=== PATIENT | female | born 2000 | race Caucasian/White ===

== ENCOUNTER 2019-07-13 00:56 | Emergency (ER) | payer BC, OTHER ==
--- NOTE | 2019-07-13 01:17 | EDM.PDOC ---
ED HPI GENERAL MEDICAL PROBLEM - General Chief Complaint: Head Injury Stated Complaint: poss head injury Time Seen by Provider: 07/13/19 01:12 Source of Information: Reports: Patient, Family (significant other) History Limitations: Reports: No Limitations - History of Present Illness INITIAL COMMENTS - FREE TEXT/NARRATIVE: 19-year-old female attends the ED with reported diffuse headache associated nausea without vomiting photophobi and mild cervical neck pain. She states she was struck by a large steel frame door left frontotemporal scalp about 1900 hrs. tonight. She had a headache within half hour and associated nausea. Now she feels the headache is much more intense. She is wearing sunglasses due to photosensitivity. She does has a history of migraines. No vomiting. She feels her balance is not quite right. Mild diffuse left-sided cervical neck pain. Onset: Sudden Onset Date: 07/12/19 Onset Time: 19:00 Duration: Hour(s): Location: Reports: Head (Struck in the left frontal temporal scalp by a large metal frame door), Neck Quality: Reports: Ache, Pressure, Throbbing, Other Severity: Severe (Associated with nausea) Improves with: Reports: None ( and did attend) Worsens with: Reports: None Context: Reports: Trauma (Blunt trauma from a edge of a steel door.). Denies: Activity, Exercise, Lifting, Sick Contact Associated Symptoms: Reports: Headaches, Loss of Appetite, Malaise, Nausea/ Vomiting, Other. 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 No relief of the pain) Head Pain Score (Numeric/FACES): 7 - Related Data Allergies Allergy/AdvReac Type Severity Reaction Status Date / Time No Known Allergies Allergy Verified 07/13/19 01:08 Home Meds: Home Meds . [No Known Home Meds] 07/13/19 [History] Past Medical History Neurological History: Reports: Migraines Social & Family History - Living Situation & Occupation Living situation: Reports: Single Occupation: Employed ED ROS GENERAL - Review of Systems Review Of Systems: See Below Constitutional: Reports: Weakness, Fatigue, Decreased Appetite. Denies: Fever, Chills, Malaise HEENT: Reports: Glasses Respiratory: Reports: No Symptoms Cardiovascular: Reports: No Symptoms Endocrine: Reports: No Symptoms GI/Abdominal: Reports: Nausea (Since hitting her head.) : Reports: No Symptoms Musculoskeletal: Reports: Neck Pain Skin: Reports: No Symptoms Neurological: Reports: No Symptoms Psychiatric: Reports: No Symptoms Hematologic/Lymphatic: Reports: No Symptoms Immunologic: Reports: No Symptoms ED EXAM, HEAD INJURY - Physical Exam Exam: See Below Exam Limited By: No Limitations General Appearance: Alert, WD/WN, Mild Distress, Other (Wearing dark sunglasses due to photophobia) Head: Scalp Swelling (Mild scalp swelling over the left frontal cortex.), Scalp Hematoma (Mild left-sided scalp hematoma frontal lateral), Scalp Tenderness ( scalp.). No: Scalp Abrasions, Scalp Ecchymosis, Active Bleeding ( in the temporal region. ), Facial Swelling Nexus Criteria: No: Posterior, Midline Cervical Tenderness, Evidence of Intoxication, Altered Level of Consciousness, Focal Neurological Deficit, Painful Distraction Injuries Eyes: Bilateral Eye: Normal Inspection, PERRL Throat/Mouth: Normal Inspection, Normal Lips, Normal Oropharynx Neck: Full Range of Motion, Paraspinous Muscle Tender, Tenderness, Tender Lateral. No: Muscle Spasm (Mild tenderness left lateral neck.), Spinous Processes Tender, Stiff Neck Respiratory: No Respiratory Distress (Mild left-sided neck), Lungs Clear, Normal Breath Sounds, No Accessory Muscle Use, Chest Non-Tender Cardiovascular: Normal Peripheral Pulses, Regular Rate, Rhythm, No Edema, No Gallop, No Murmur, No Rub GI/Abdominal Exam: Normal Bowel Sounds, Soft, Non-Tender, No Organomegaly, No Distention Back Exam: Normal Inspection, Full Range of Motion Extremities: Normal Inspection, Normal Range of Motion, Non-Tender Course - Vital Signs Last Recorded V/S: Last Vital Signs Temp 36.2 C 07/13/19 01:04 Pulse 85 07/13/19 01:04 Resp 18 07/13/19 01:04 BP 141/89 H 07/13/19 01:04 Pulse Ox 100 07/13/19 01:04 - Orders/Labs/Meds Orders: Active Orders 24 hr Category Date Time Status Head wo Cont [CT] Stat Exams 07/13/19 01:13 Taken - Radiology Interpretation Free Text/Narrative:: 19-year-old female presents to the ED 6 hours after being struck in the left side of her head by a steel frame door. She states it struck her in the left frontal temporal skull in days or for a bit. She thought initially she might be bleeding but no open wounds are identified. She developed a headache within about 20 minutes to 30 minutes after injury with associated nausea that has just intensified since the time of injury. She feels a little offkilter. She comes into the ED wearing dark sunglasses due to the severity of the headache and photosensitivity. Examination shows minimal scalp hematoma and tenderness over the left frontal /temporal scalp. Minimal left-sided neck tenderness without evidence of any fracture. Plan CT head to be done. - Re-Assessments/Exams Free Text/Narrative Re-Assessment/Exam: 07/13/19 01:58 CT head reveals no intracranial bleeding or mass effect. No skull fractures identified. No scalp hematomas identified either. Patient will thus be given Dilaudid 1 mg IM with Phenergan 25 mg IM for headache and nausea relief. If contused the superficial temporal artery which may precipitated the bad headache. She doesn't have to work until 5:00 today. She should be okay by that time from the medication effect. Departure - Departure Time of Disposition: 02:03 Disposition: Home, Self-Care 01 Condition: Fair Clinical Impression: Closed head injury Qualifiers: Encounter type: initial encounter Qualified Code(s): S09.90XA - Unspecified injury of head, initial encounter Migraine Qualifiers: Migraine type: without aura - Discharge Information *PRESCRIPTION DRUG MONITORING PROGRAM REVIEWED*: Not Applicable Instructions: Migraine Headache, [id number], Head Injury, Adult, [id number] Forms: ED Department Discharge Additional Instructions: Evaluation the emergency room tonight in regards to closed head injury secondary to blunt trauma to the left frontal temporal scalp by heavy steel door. This appears to have precipitated a migraine type headache with photophobia and nausea. ET head reveals no skull fractures or intracranial bleeding or mass effect. You're treated with an intramuscular injection of Dilaudid 1 mg with Phenergan 25 mg IM for pain and nausea relief. This will cause some degree of sedation expect to likely be sleeping for the next 8 hours. After this suggest Motrin 600 mg every 6 hours for pain relief due to contusion to the scalp. No evidence of concussion identified. - My Orders Last 24 Hours: My Active Orders 07/13/19 01:13 Head wo Cont [CT] Stat - Assessment/Plan Last 24 Hours: My Active Orders 07/13/19 01:13 Head wo Cont [CT] Stat
[2019-07-13] MEDS ORDERED: HYDROmorphone 1 MG/ML Syringe IM ONE (02:01)
[2019-07-13] MEDS ORDERED: Promethazine 25 MG/ML SDV IM ONE (02:01)
--- NOTE | 2019-07-13 07:00 | CT ---
Head CT Technique: Multiple axial sections through the brain were obtained. Intravenous contrast was not utilized. Comparison: No prior intracranial imaging is available. Findings: Ventricles along with basal cisterns and sulci over the convexities appear within normal limits for the patient's age. No abnormal parenchymal densities are seen. No evidence of intracranial hemorrhage. No midline shift or mass effect is seen. Bone window settings were reviewed which show no acute calvarial abnormality. Visualized paranasal sinuses show nothing acute. Visualized mastoid sinuses are clear. Impression: 1. Nothing acute is identified on noncontrast head CT exam. Diagnostic code #1 I agree with preliminary report from [facility], finalized on 07/13/19, 3:07 AM Central Time
== END 2019-07-13 02:28 | disposition home or self-care (01) ==
LOC: JD.ED 00:56
DX: S09.90XA Unspecified injury of head, initial encounter (principal); G43.009 Migraine without aura, not intractable, without status migrainosus; W22.8XXA Striking against or struck by other objects, initial encounter
CPT/HCPCS: 70450; 96372; 99283; J1170; J2550

== ENCOUNTER 2020-02-25 21:50 | Emergency (ER) | payer BC ==
--- NOTE | 2020-02-25 22:27 | EDM.PDOC ---
<Daysi Ramos - Last Filed: 02/25/20 22:58> ED HPI GENERAL MEDICAL PROBLEM - General Chief Complaint: Abdominal Pain Stated Complaint: ABDORMINAL PAINS FOR THE LAST ONE MONTH Time Seen by Provider: 02/25/20 21:59 Source of Information: Reports: Patient History Limitations: Reports: No Limitations - History of Present Illness INITIAL COMMENTS - FREE TEXT/NARRATIVE: Patient is a 19-year-old female who presents to the ER with complaints of dull lower abdominal pain for the last month. She states that she initially thought she may be , however she has had 2 negative home test. Patient also states that she started her period 2 days ago and that it has been abnormally heavy for her. She is fairly regular with her periods and states she gets them about at the same time every month, however, she states last months period was spotting which is what led her to believe she could be . She had been on the control pill, however, approximately 3 months ago she was changed to the control patch. She states that this month her period began while she still had on the active patch. She has had some mild nausea with smelling food for the last month. She has had no vomiting. States that she has alternating between diarrhea and constipation. She is had no fever no chills. She denies any dysuria, however states she has had urinary tract infections in the past. Bilateral Lower Abdomen Pain Score (Numeric/FACES): 8 - Related Data Allergies Allergy/AdvReac Type Severity Reaction Status Date / Time No Known Allergies Allergy Verified 07/13/19 01:08 Home Meds: Home Meds . [No Known Home Meds] 07/13/19 [History] Past Medical History - Past Health History Medical/Surgical History: Denies Medical/Surgical History Neurological History: Reports: Migraines Social & Family History - Family History Family Medical History: Noncontributory - Living Situation & Occupation Living situation: Reports: Single Occupation: Employed ED ROS GENERAL - Review of Systems Review Of Systems: Comprehensive ROS is negative, except as noted in HPI. ED EXAM, GI/ABD - Physical Exam Exam: See Below Exam Limited By: No Limitations General Appearance: Alert, WD/WN, No Apparent Distress Respiratory/Chest: No Respiratory Distress, Lungs Clear, Normal Breath Sounds, No Accessory Muscle Use, Chest Non-Tender Cardiovascular: Normal Peripheral Pulses, Regular Rate, Rhythm, No Edema, No Gallop, No JVD, No Murmur, No Rub GI/Abdominal Exam: Normal Bowel Sounds, Soft, No Organomegaly, No Distention, No Abnormal Bruit, No Mass, Pelvis Stable, Tender (suprapubic) Neurological: Alert, Oriented, CN II-XII Intact, Normal Cognition, Normal Gait, Normal Reflexes, No Motor/Sensory Deficits Psychiatric: Normal Affect, Normal Mood Skin Exam: Warm, Dry, Intact, Normal Color, No Rash Course - Vital Signs Last Recorded V/S: Last Vital Signs Temp 36.3 C 02/25/20 21:58 Pulse 106 H 02/25/20 21:58 Resp 20 02/25/20 21:58 BP 156/94 H 02/25/20 21:58 Pulse Ox 100 02/25/20 21:58 - Orders/Labs/Meds Orders: Active Orders 24 hr Category Date Time Status KUB [Abdomen 1V Flat] [CR] Stat Exams 02/25/20 22:19 Taken Labs: Laboratory Tests 02/25/20 02/25/20 02/25/20 Range/Units 22:26 22:26 22:26 WBC 8.86 (3.98-10.04) K/mm3 RBC 4.56 (3.98-5.22) M/mm3 Hgb 10.0 L (11.2-15.7) gm/dl Hct 34.1 (34.1-44.9) % MCV 74.8 L D (79.4-94.8) fl MCH 21.9 L (25.6-32.2) pg MCHC 29.3 L (32.2-35.5) g/dl RDW Std Deviation 42.7 (36.4-46.3) fL Plt Count 260 (182-369) K/mm3 MPV 10.1 (9.4-12.3) fl Neut % (Auto) 62.0 (34.0-71.1) % Lymph % (Auto) 31.9 (19.3-51.7) % Day % (Auto) 5.3 (4.7-12.5) % Eos % (Auto) 0.5 L (0.7-5.8) Baso % (Auto) 0.1 (0.1-1.2) % Neut # (Auto) 5.49 (1.56-6.13) K/mm3 Lymph # (Auto) 2.83 (1.18-3.74) K/mm3 Day # (Auto) 0.47 H (0.24-0.36) K/mm3 Eos # (Auto) 0.04 (0.04-0.36) K/mm3 Baso # (Auto) 0.01 (0.01-0.08) K/mm3 Manual Slide Review Abnormal smear Sodium 142 (136-145) mEq/L Potassium 4.0 (3.5-5.1) mEq/L Chloride 108 H (98-107) mEq/L Carbon Dioxide 26 (21-32) mEq/L Anion Gap 12.0 (5-15) BUN 7 (7-18) mg/dL Creatinine 0.8 (0.55-1.02) mg/dL Est Cr Clr Drug Dosing 120.29 mL/min Estimated GFR (MDRD) > 60 (>60) mL/min BUN/Creatinine Ratio 8.8 L (14-18) Glucose 147 H (74-106) mg/dL Calcium 8.2 L (8.5-10.1) mg/dL Total Bilirubin 0.2 (0.2-1.0) mg/dL AST 8 L (15-37) U/L ALT 17 (14-59) U/L Alkaline Phosphatase 77 (46-116) U/L C-Reactive Protein 1.7 H* (<1.0) mg/dL Total Protein 6.7 (6.4-8.2) g/dl Albumin 3.0 L (3.4-5.0) g/dl Globulin 3.7 gm/dL Albumin/Globulin Ratio 0.8 L (1-2) HCG, Qual Negative (NEGATIVE) Urine Color (Yellow) Urine Appearance (Clear) Urine pH (5.0-8.0) Ur Specific [place] (1.005-1.030) Urine Protein (Negative) Urine Glucose (UA) (Negative) Urine Ketones (Negative) Urine Occult Blood (Negative) Urine Nitrite (Negative) Urine Bilirubin (Negative) Urine Urobilinogen (0.2-1.0) Ur Leukocyte Esterase (Negative) Urine RBC (0-5) /hpf Urine WBC (0-5) /hpf Ur Squamous Epith Cells (0-5) /hpf Urine Bacteria (FEW) /hpf Urine Mucus (FEW) /hpf 02/25/20 Range/Units 22:45 WBC (3.98-10.04) K/mm3 RBC (3.98-5.22) M/mm3 Hgb (11.2-15.7) gm/dl Hct (34.1-44.9) % MCV (79.4-94.8) fl MCH (25.6-32.2) pg MCHC (32.2-35.5) g/dl RDW Std Deviation (36.4-46.3) fL Plt Count (182-369) K/mm3 MPV (9.4-12.3) fl Neut % (Auto) (34.0-71.1) % Lymph % (Auto) (19.3-51.7) % Day % (Auto) (4.7-12.5) % Eos % (Auto) (0.7-5.8) Baso % (Auto) (0.1-1.2) % Neut # (Auto) (1.56-6.13) K/mm3 Lymph # (Auto) (1.18-3.74) K/mm3 Day # (Auto) (0.24-0.36) K/mm3 Eos # (Auto) (0.04-0.36) K/mm3 Baso # (Auto) (0.01-0.08) K/mm3 Manual Slide Review Sodium (136-145) mEq/L Potassium (3.5-5.1) mEq/L Chloride (98-107) mEq/L Carbon Dioxide (21-32) mEq/L Anion Gap (5-15) BUN (7-18) mg/dL Creatinine (0.55-1.02) mg/dL Est Cr Clr Drug Dosing mL/min Estimated GFR (MDRD) (>60) mL/min BUN/Creatinine Ratio (14-18) Glucose (74-106) mg/dL Calcium (8.5-10.1) mg/dL Total Bilirubin (0.2-1.0) mg/dL AST (15-37) U/L ALT (14-59) U/L Alkaline Phosphatase (46-116) U/L C-Reactive Protein (<1.0) mg/dL Total Protein (6.4-8.2) g/dl Albumin (3.4-5.0) g/dl Globulin gm/dL Albumin/Globulin Ratio (1-2) HCG, Qual (NEGATIVE) Urine Color Yellow (Yellow) Urine Appearance Slt cloudy H (Clear) Urine pH 6.5 (5.0-8.0) Ur Specific [place] > or = 1.030 (1.005-1.030) Urine Protein 2+ H (Negative) Urine Glucose (UA) Negative (Negative) Urine Ketones Negative (Negative) Urine Occult Blood 3+ H (Negative) Urine Nitrite Negative (Negative) Urine Bilirubin Negative (Negative) Urine Urobilinogen 1.0 (0.2-1.0) Ur Leukocyte Esterase Negative (Negative) Urine RBC 50-75 H (0-5) /hpf Urine WBC 0-5 (0-5) /hpf Ur Squamous Epith Cells 0-5 (0-5) /hpf Urine Bacteria Few (FEW) /hpf Urine Mucus Few (FEW) /hpf Meds: Medications Discontinued Medications Generic Name Dose Route Start Last Admin Trade Name Freq PRN Reason Stop Dose Admin Ibuprofen 600 mg 02/25/20 22:29 02/25/20 22:38 Motrin PO 02/25/20 22:30 600 mg ONETIME ONE Administration - Re-Assessments/Exams Free Text/Narrative Re-Assessment/Exam: 02/25/20 22:59 lab results are pending. case discussed with dr. rutledge and he will assume care of the patient at this time. Departure - Departure Disposition: Home, Self-Care 01 Clinical Impression: Menstrual cramps - Discharge Information Referrals: PCP,None [Primary Care Provider] - Forms: ED Department Discharge Additional Instructions: You were seen in the emergency room for 1 month of lower abdominal pain associated with menstrual spotting. Work-up in the ER included blood work, a urinalysis, and x-rays of your abdomen and pelvis. Your entire work-up was unremarkable. You do not have an infection. You are not significantly anemic. You are not . Based on your history, physical exam, and ER tests, your lower abdominal discomfort is most likely due to menstrual cramps associated with menstrual spotting. If your symptoms persist, we recommend that you follow-up with the Press Operator Helper Dr. Campbell Garcia. If any other problems, please do not hesitate to return to the ER. Sepsis Event Note - Evaluation Sepsis Screening Result: No Definite Risk - Focused Exam Vital Signs: Vital Signs Temp Pulse Resp BP Pulse Ox 02/25/20 21:58 36.3 C 106 H 20 156/94 H 100 Date Exam was Performed: 02/25/20 Time Exam was Performed: 22:58 <Artie Rutledge - Last Filed: 02/25/20 23:33> Course - Re-Assessments/Exams Free Text/Narrative Re-Assessment/Exam: 02/25/20 23:28 KUB appears to demonstrate a nonspecific bowel gas pattern. Formal read per the Radiologist pending. The patient CBC is remarkable for a Hgb mildly depressed at 10.0, with a Hct normal at 34.1. The remainder of her CBC is unremarkable. Her CMP is remarkable for a chloride slightly elevated at 108, and a blood glucose mildly elevated at 149, with the remainder of her CMP being unremarkable. Her CRP is mildly elevated at 1.7. Her serum qualitative hCG is negative. Her urinalysis is remarkable for 3+ occult blood and 50-75 RBCs, leukocyte esterase negative with 0-5 WBCs, nitrite negative with few bacteria, and 0-5 squamous epithelial cells. The patient's urinalysis is consistent with her menstruation. The remainder of her work-up was unremarkable. I will discharge her home. Departure - Departure Time of Disposition: 23:31 Condition: Good - Discharge Information *PRESCRIPTION DRUG MONITORING PROGRAM REVIEWED*: Not Applicable *COPY OF PRESCRIPTION DRUG MONITORING REPORT IN PATIENT LUZ ELENA: Not Applicable Sepsis Event Note - Focused Exam Date Exam was Performed: 02/25/20 Time Exam was Performed: 23:28
[2020-02-25] MEDS ORDERED: Ibuprofen 600 MG Tab PO ONE (22:29)
--- NOTE | 2020-02-26 10:28 | CR ---
Abdomen: Supine view of the abdomen was obtained. Bowel gas pattern appears within normal limits. Calcifications are seen within the pelvis which are compatible with phleboliths. Bony structures are unremarkable. Impression: 1. Nothing acute is seen on supine abdominal x-ray. Diagnostic code #1 This report was dictated in MDT
== END 2020-02-25 23:47 | disposition home or self-care (01) ==
LOC: JD.ED 21:50
DX: N94.6 Dysmenorrhea, unspecified (principal)
CPT/HCPCS: 36415; 74018; 80053; 81001; 84703; 85025; 86140; 99284; A9270; 99283

== ENCOUNTER 2021-03-04 06:35 | Inpatient (IN) | payer BC, MEDICAID ==
[2021-03-04] MEDS ORDERED: Nalbuphine 10 MG/1 ML Vial IVPUSH PRN (18:48)
[2021-03-04] MEDS ORDERED: Sodium Chloride 0.9% 10 ML Syringe FLUSH PRN (18:48)
[2021-03-04] MEDS ORDERED: Ondansetron 4 MG/2 ML SDV IVPUSH PRN (18:48)
[2021-03-04] MEDS ORDERED: Misoprostol 25 MCG (1/4 of 100 MCG) Tab VAG PRN (18:48)
--- NOTE | 2021-03-04 18:53 | PCM.LDHP ---
L&D History of Present Illness - General Date of Service: 03/04/21 Admit Problem/Dx: Patient Status Order with Admit Dx/Problem 03/04/21 18:49 Patient Status [ADT] Routine Admission Diagnosis/Problem Admission Diagnosis/Problem 37 weeks gestation of Source of Information: Patient History Limitations: Reports: No Limitations - History of Present Illness Introduction:: Patient is a 20 y/o at 37 1/7 wks who presents for planned IOL for prior findings of elevated BP and elevated urine protein:creatinine ratio. Doing well today. 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: : 1 Para: 0 LMP (Approximate): Social & Family History - Family History Family Medical History: No Pertinent Family History - Tobacco Use Tobacco Use Status *Q: Never Tobacco User - Caffeine Use Caffeine Use: Reports: None - Alcohol Use Alcohol Use History: No - Recreational Drug Use Recreational Drug Use: No - Living Situation & Occupation Living situation: Reports: Single Occupation: Employed H&P Review of Systems - Review of Systems: Review Of Systems: See Below General: Reports: No Symptoms HEENT: Denies: Visual Changes Pulmonary: Reports: No Symptoms Cardiovascular: Reports: No Symptoms Gastrointestinal: Reports: No Symptoms Genitourinary: Reports: No Symptoms Musculoskeletal: Reports: No Symptoms Psychiatric: Reports: No Symptoms Neurological: Denies: Headache L&D Exam - Exam Exam: See Below - OB Specific Contraction Intensity: Irritability Movement: Active Heart Tones: Present Heart Tones per Min: 130 Heart Rate (FHR) Variability: Marked (>25 bpm) Presentation: Vertex - Bull Score Bull Score Cervix Position: Midposition Bull Score Consistency: Soft Bull Score Effacement: 51-70% Bull Score Dilation: 3-4 cm Bull Score Infant's Station: -2 Bull Score Total: 8 - Exam General: Alert, Oriented, Cooperative Lungs: Clear to Auscultation, Normal Respiratory Effort Cardiovascular: Regular Rate, Regular Rhythm GI/Abdominal Exam: Soft, Non-Tender Genitourinary: Normal external exam Extremities: Normal Inspection Skin: Warm, Dry, Intact - Patient Data Result Diagrams: 03/04/21 19:58 03/04/21 19:58 - Problem List (1) 37 weeks gestation of SNOMED Code(s): 43852827 ICD Code: Z3A.37 - 37 WEEKS GESTATION OF Status: Acute Current Visit: Yes (2) Gestational diabetes SNOMED Code(s): 01319713 ICD Code: O24.419 - GESTATIONAL DIABETES MELLITUS IN , UNSP CONTROL Status: Acute Current Visit: Yes Qualifiers: Gestational diabetes mellitus control: insulin-controlled Trimester: third trimester Qualified Code(s): O24.414 - Gestational diabetes mellitus in , insulin controlled (3) Preeclampsia SNOMED Code(s): 091253937 ICD Code: O14.90 - UNSPECIFIED PRE-ECLAMPSIA, UNSPECIFIED TRIMESTER Status: Acute Current Visit: Yes Qualifiers: Trimester: third trimester Qualified Code(s): O14.93 - Unspecified pre- eclampsia, third trimester Problem List Initiated/Reviewed/Updated: Yes Orders Last 24hrs: Active Orders 24 hr Category Date Time Status Patient Status [ADT] Routine ADT 03/04/21 18:49 Ordered Communication Order [RC] ASDIRECTED Care 03/04/21 18:49 Ordered Communication Order [RC] ASDIRECTED Care 03/04/21 18:49 Ordered Communication Order [RC] ASDIRECTED Care 03/04/21 18:49 Ordered Communication Order [RC] ASDIRECTED Care 03/04/21 18:49 Ordered Heart Tones [RC] ASDIRECTED Care 03/04/21 18:50 Ordered Monitoring [RC] INTERMITTENT Care 03/04/21 18:49 Ordered Non Stress Test [RC] PER UNIT ROUTINE Care 03/04/21 18:49 Ordered Notify Provider [RC] ASDIRECTED Care 03/04/21 18:49 Ordered Notify Provider [RC] PRN Care 03/04/21 18:49 Ordered Peripheral IV Care [RC] . DIRECTED Care 03/04/21 18:50 Ordered Vaginal Exam [RC] ASDIRECTED Care 03/04/21 18:49 Ordered Vital Signs [RC] ASDIRECTED Care 03/04/21 18:49 Ordered Regular Diet [DIET] Diet 03/04/21 Dinner Ordered ALANINE AMINOTRANSFERASE,ALT [CHEM] Routine Lab 03/04/21 18:48 Ordered ASPARTATE AMNIOTRANSFERASE,AST [CHEM] Routine Lab 03/04/21 18:48 Ordered CBC W/O DIFF,HEMOGRAM [HEME] Routine Lab 03/04/21 18:48 Ordered CORONAVIRUS COVID-19 [place] [MOLEC] Stat Lab 03/04/21 18:51 Ordered CREATININE W/GFR [CHEM] Routine Lab 03/04/21 18:48 Ordered PROTEIN/CREATININE RATIO,URINE [URCHEM] Routine Lab 03/04/21 18:48 Ordered RAPID PLASMA REAGIN,RPR [CHEM] Routine Lab 03/04/21 18:49 Ordered TYPE AND SCREEN [BBK] Routine Lab 03/04/21 18:48 Ordered Lactated Ringers [Ringers, Lactated] 1,000 ml Med 03/04/21 19:00 Ordered IV ASDIRECTED Nalbuphine [Nubain] Med 03/04/21 18:48 Ordered 10 mg IVPUSH Q2H PRN Ondansetron [Zofran] Med 03/04/21 18:48 Ordered 4 mg IVPUSH Q4H PRN Oxytocin/Lactated Ringers [Pitocin in LR 10 Units/1,000 Med 03/04/21 19:00 Ordered ML] 10 unit in 1,000 ml IV .CONTINUOUS Oxytocin/Lactated Ringers [Pitocin in LR 10 Units/1,000 Med 03/04/21 19:00 Ordered ML] 10 unit in 1,000 ml IV TITRATE Sodium Chloride 0.9% [Saline Flush] Med 03/04/21 18:48 Ordered 10 ml FLUSH ASDIRECTED PRN miSOPROStoL [Cytotec] Med 03/04/21 18:48 Ordered 25 mcg VAG Q4H PRN Electronic Heart Tones Ext w TOCO [WOMSER] Oth 03/04/21 18:49 Ordered Routine Electronic Heart Tones Internal [WOMSER] Per Unit Oth 03/04/21 18:49 Ordered Routine Medication Administration Instruction [OM.PC] Ot 03/04/21 19:00 Ordered ASDIRECTED Peripheral IV Insertion Adult [OM.PC] Routine Oth 03/04/21 18:49 Ordered Resuscitation Status Routine Resus Stat 03/04/21 18:48 Ordered Assessment/Plan Comment:: * Previous findings of multiple mild range BP's, repeat labs on admission * Cytotec for IOL and then pitocin/AROM when able * GBS negative * Blood sugars q4 * Pain management per patient preference * Anticipate
[2021-03-04] MEDS ORDERED: Oxytocin/Lactated Ringers 10 UNIT/1,000 ML BAG IV SCH ×2 (19:00)
[2021-03-04] MEDS ORDERED: Misoprostol 25 MCG (1/4 of 100 MCG) Tab ONE (20:11)
[2021-03-05] MEDS ORDERED: Bupivacaine 0.25% 10 ML SDV ONE
[2021-03-05] MEDS: Lactated Ringers 1,000 ML IV SCH ×2 (03:47→04:58)
[2021-03-05] MEDS ORDERED: Bupivacaine/fentaNYL/NS 100 ML Bag EPIDUR PRN (04:13)
[2021-03-05] MEDS ORDERED: ePHEDrine 50 MG/ML SDV IVPUSH PRN (04:13)
[2021-03-05] MEDS ORDERED: diphenhydrAMINE 50 MG/ML SDV IVPUSH PRN (04:13)
[2021-03-05] MEDS ORDERED: fentaNYL 100 MCG/2 ML SDV EPIDUR PRN (04:13)
--- NOTE | 2021-03-05 04:45 | PCM.PREANE ---
Preanesthetic Assessment - Procedure Proposed Procedure: Epidural - Anesthesia/Transfusion/Family Hx Anesthesia History: No Prior Anesthesia Family History of Anesthesia Reaction: No Transfusion History: No Prior Transfusion(s) - Review of Systems General: Fatigue, Malaise Pulmonary: No Symptoms Cardiovascular: No Symptoms Gastrointestinal: Abdominal Pain (labor) Neurological: No Symptoms Other: Reports: None - Physical Assessment Vital Signs: Last Vital Signs Temp 36.6 C 03/04/21 19:45 Pulse 95 03/04/21 19:45 Resp 16 03/04/21 19:45 BP 125/85 03/04/21 19:45 Pulse Ox 98 03/04/21 19:45 Height: 1.78 m Weight: 138.845 kg ASA Class: 2 Mental Status: Alert & Oriented x3 Airway Class: Mallampati = 2 Dentition: Reports: Normal Dentition Thyro-Mental Finger Breadths: 3 Mouth Opening Finger Breadths: 2 ROM/Head Extension: Full Lungs: Clear to Auscultation, Normal Respiratory Effort Cardiovascular: Regular Rate, Regular Rhythm - Lab Values: Laboratory Last Values WBC 12.13 K/mm3 (3.98-10.04) H 03/04/21 19:58 RBC 4.05 M/mm3 (3.98-5.22) 03/04/21 19:58 Hgb 10.4 gm/dl (11.2-15.7) L 03/04/21 19:58 Hct 33.4 % (34.1-44.9) L 03/04/21 19:58 MCV 82.5 fl (79.4-94.8) 03/04/21 19:58 MCH 25.7 pg (25.6-32.2) 03/04/21 19:58 MCHC 31.1 g/dl (32.2-35.5) L 03/04/21 19:58 RDW Std Deviation 58.7 fL (36.4-46.3) H 03/04/21 19:58 Plt Count 217 K/mm3 (182-369) 03/04/21 19:58 MPV 10.3 fl (9.4-12.3) 03/04/21 19:58 Creatinine 0.8 mg/dL (0.55-1.02) 03/04/21 19:58 Est Cr Clr Drug Dosing TNP 03/04/21 19:58 Estimated GFR (MDRD) > 60 mL/min (>60) 03/04/21 19:58 POC Glucose 84 mg/dL (70-99) 03/05/21 00:12 AST 14 U/L (15-37) L 03/04/21 19:58 ALT 15 U/L (14-59) 03/04/21 19:58 Ur Random Creatinine 91.6 mg/dL (30.0-125.0) 03/04/21 21:40 U Random Total Protein 32.5 mg/dL (0.0-11.8) H 03/04/21 21:40 Protein/Creatinin Ratio 354.8 mg/g (0-149) H 03/04/21 21:40 RPR Non-reactive (NONREACTIVE) 03/04/21 19:58 SARS-CoV-2 RNA ([place]) Negative (NEGATIVE) 03/04/21 19:55 Blood Type A POSITIVE 03/04/21 19:58 Gel Antibody Screen Negative 03/04/21 19:58 - Allergies Allergies/Adverse Reactions: Allergies Allergy/AdvReac Type Severity Reaction Status Date / Time No Known Allergies Allergy Verified 03/04/21 20:10 - Anesthesia Plan Pre-Op Medication Ordered: None - Acknowledgements Anesthesia Type Planned: Epidural Pt an Appropriate Candidate for the Planned Anesthesia: Yes Alternatives and Risks of Anesthesia Discussed w Pt/Guardian: Yes Pt/Guardian Understands and Agrees with Anesthesia Plan: Yes PreAnesthesia Questionnaire - Past Health History Medical/Surgical History: Denies Medical/Surgical History Cardiovascular History: Reports: Hypertension Gastrointestinal History: Reports: GERD 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: Neurological History: Reports: Migraines Endocrine/Metabolic History: Reports: Diabetes, Gestational, Obesity/BMI 30+ Hematologic History: Reports: Anemia - SUBSTANCE USE Tobacco Use Status *Q: Never Tobacco User Recreational Drug Use History: No - HOME MEDS Home Medications: Home Meds Ferrous Sulfate [Iron] 325 mg PO BID 03/04/21 [History] No122/Iron/Folic Acid [ Multi Tablet] 1 each PO DAILY 03/04/21 [History] - CURRENT (IN HOUSE) MEDS Current Meds: Current Medications Diphenhydramine HCl (Diphenhydramine 50 Mg/Ml Sdv) 25 mg IVPUSH Q6H PRN PRN Reason: pruritis Ephedrine Sulfate (Ephedrine 50 Mg/Ml Sdv) 5 mg IVPUSH ASDIRECTED PRN PRN Reason: Hypotension Fentanyl (Fentanyl 100 Mcg/2 Ml Sdv) 100 mcg EPIDUR Q3H PRN PRN Reason: Pain Fentanyl/Bupivacaine HCl (Bupivacaine/Fentanyl/Ns 100 Ml Bag) 100 ml EPIDUR ASDIRECTED PRN PRN Reason: Pain Oxytocin/Lactated Ringer's (Pitocin In Lr 10 Units/1,000 Ml) 10 unit in 1,000 mls @ 12 mls/hr IV TITRATE JOSE A; Protocol Oxytocin/Lactated Ringer's (Pitocin In Lr 10 Units/1,000 Ml) 10 unit in 1,000 mls @ 500 mls/hr IV .CONTINUOUS JOSE A Lactated Ringer's (Ringers, Lactated) 1,000 mls @ 40 mls/hr IV ASDIRECTED JOSE A Last Admin: 03/05/21 03:47 Dose: 999 mls/hr Documented by: Misoprostol (Misoprostol 25 Mcg (1/4 Of 100 Mcg) Tab) 25 mcg VAG Q4H PRN PRN Reason: cervical ripening Last Admin: 03/04/21 20:18 Dose: 25 mcg Documented by: Nalbuphine HCl (Nalbuphine 10 Mg/1 Ml Vial) 10 mg IVPUSH Q2H PRN PRN Reason: Pain Last Admin: 03/05/21 02:08 Dose: 10 mg Documented by: Ondansetron HCl (Ondansetron 4 Mg/2 Ml Sdv) 4 mg IVPUSH Q4H PRN PRN Reason: Nausea/Vomiting Sodium Chloride (Sodium Chloride 0.9% 10 Ml Syringe) 10 ml FLUSH ASDIRECTED PRN PRN Reason: Keep Vein Open Discontinued Medications Misoprostol (Misoprostol 25 Mcg (1/4 Of 100 Mcg) Tab) Confirm Administered Dose 25 mcg .ROUTE .STK-MED ONE Stop: 03/04/21 20:12 Last Admin: 03/04/21 21:03 Dose: Not Given Documented by:
[2021-03-05] MEDS ORDERED: Misoprostol 200 MCG Tab ONE (06:43)
[2021-03-05] MEDS ORDERED: Misoprostol 200 MCG Tab PO STA (06:57)
--- NOTE | 2021-03-05 07:06 | PCM.DEL ---
L & D Note - General Info Date of Service: 03/05/21 - Delivery Note Cervical Ripening Method: Misoprostil Delivery Outcome: Livebirth Delivery Method: Spontaneous Vaginal Delivery-Single Delivery Mode: Spontaneous Presentation: Left Occiput Anterior (RADHA) Nuchal Cord: None Anesthesia Type: Epidural Amniotic Fluid Description: Clear Episiotomy Type: None Laceration: 2nd Degree, Labial (right sided) Suture type: Vicryl Suture size: 2-0 Placenta: Intact, Spontaneous Cord: 3 Vessels Estimated Blood Loss: 500 Resuscitation Needed: Yes Clark: Bulb Syringe, Stimulated, Warmed, Saline Used, Warmer Used Delivery Comments (Free Text/Narrative):: Patient found to be complete and began pushing. With maternal pushing effort head delivered from RADHA presentation. No nuchal cord present. With gentle downward traction the shoulders and body delivered. Infant placed on maternal abdomen. Cord clamped and cut. Cord blood obtained. Placenta allowed time to separate and expelled intact. There was initially poor uterine tone for which patient was given 600 mcg of buccal cytotec. Straight catheterization done bladder as well. Tone/bleeding did respond to those interventions. EBL 500 cc. Inspection of perineum showed a 2nd degree laceration of right labia. This was repaired with a 2-0 Vicryl in a running fashion - General Info Date of Service: 03/05/21 - Patient Data Vitals - Most Recent: Last Vital Signs Temp 36.6 C 03/04/21 19:45 Pulse 95 03/04/21 19:45 Resp 16 03/04/21 19:45 BP 125/85 03/04/21 19:45 Pulse Ox 98 03/04/21 19:45 Weight - Most Recent: 138.845 kg - Problem List & Annotations (1) 37 weeks gestation of SNOMED Code(s): 03805393 Code(s): Z3A.37 - 37 WEEKS GESTATION OF Status: Acute Current Visit: Yes (2) Gestational diabetes SNOMED Code(s): 83335558 Code(s): O24.419 - GESTATIONAL DIABETES MELLITUS IN , UNSP CONTROL Status: Acute Current Visit: Yes Qualifiers: Gestational diabetes mellitus control: insulin-controlled Trimester: third trimester Qualified Code(s): O24.414 - Gestational diabetes mellitus in , insulin controlled (3) Preeclampsia SNOMED Code(s): 288701456 Code(s): O14.90 - UNSPECIFIED PRE-ECLAMPSIA, UNSPECIFIED TRIMESTER Status: Acute Current Visit: Yes Qualifiers: Trimester: third trimester Qualified Code(s): O14.93 - Unspecified pre- eclampsia, third trimester (4) Vaginal delivery SNOMED Code(s): 611243582 Code(s): O80 - ENCOUNTER FOR FULL-TERM UNCOMPLICATED DELIVERY Status: Acute Current Visit: Yes - Problem List Review Problem List Initiated/Reviewed/Updated: Yes - My Orders Last 24 Hours: My Active Orders 03/04/21 Dinner Regular Diet [DIET] 03/04/21 18:48 Nalbuphine [Nubain] 10 mg IVPUSH Q2H PRN Ondansetron [Zofran] 4 mg IVPUSH Q4H PRN Sodium Chloride 0.9% [Saline Flush] 10 ml FLUSH ASDIRECTED PRN miSOPROStoL [Cytotec] 25 mcg VAG Q4H PRN Resuscitation Status Routine 03/04/21 18:49 Patient Status [ADT] Routine Communication Order [RC] ASDIRECTED Communication Order [RC] ASDIRECTED Communication Order [RC] ASDIRECTED Communication Order [RC] ASDIRECTED Monitoring [RC] INTERMITTENT Notify Provider [RC] ASDIRECTED Notify Provider [RC] PRN Electronic Heart Tones Ext w TOCO [WOMSER] Routine Electronic Heart Tones Internal [WOMSER] Per Unit Routine Peripheral IV Insertion Adult [OM.PC] Routine 03/04/21 19:00 Lactated Ringers [Ringers, Lactated] 1,000 ml IV ASDIRECTED Oxytocin/Lactated Ringers [Pitocin in LR 10 Units/1,000 ML] 10 unit in 1,000 ml IV .CONTINUOUS Oxytocin/Lactated Ringers [Pitocin in LR 10 Units/1,000 ML] 10 unit in 1,000 ml IV TITRATE Medication Administration Instruction [OM.PC] ASDIRECTED 03/04/21 21:23 Blood Glucose Check, Bedside [RC] Q4HR 03/05/21 06:58 Patient Status Manage Transfer [TRANSFER] Routine - Assessment Assessment:: PPD#0 - Plan Plan:: * Routine cares * Breast feeding * Discharge home in 1-2 days
[2021-03-05] MEDS ORDERED: Acetaminophen 325 MG Tab PO PRN (07:56)
[2021-03-05] MEDS ORDERED: Ibuprofen 600 MG Tab PO PRN (07:56)
[2021-03-05] MEDS ORDERED: Docusate Sodium 100 MG Cap PO PRN (07:56)
[2021-03-05] MEDS ORDERED: Benzocaine/Menthol 20%-0.5% Spray 56 GM Canister TOP PRN (07:56)
[2021-03-05] MEDS ORDERED: Witch Hazel Medicated Pads 40/Jar TOP PRN (07:56)
--- NOTE | 2021-03-05 09:53 | PCM48HPAN ---
Post Anesthesia Note - EVALUATION WITHIN 48HRS OF ANESTHETIC Vital Signs in Normal Range: Yes Patient Participated in Evaluation: Yes Respiratory Function Stable: Yes Airway Patent: Yes Cardiovascular Function Stable: Yes Hydration Status Stable: Yes Pain Control Satisfactory: Yes Nausea and Vomiting Control Satisfactory: Yes Mental Status Recovered: Yes Vital Signs: Last Vital Signs Temp 36.6 C 03/04/21 19:45 Pulse 95 03/04/21 19:45 Resp 16 03/04/21 19:45 BP 125/85 03/04/21 19:45 Pulse Ox 98 03/04/21 19:45
--- NOTE | 2021-03-06 03:01 | PCM.PNPP ---
- General Info Date of Service: 03/06/21 Functional Status: Reports: Pain Controlled, Tolerating Diet, Ambulating, Urinating - Review of Systems General: Reports: No Symptoms Pulmonary: Reports: No Symptoms Cardiovascular: Reports: No Symptoms Gastrointestinal: Reports: No Symptoms Genitourinary: Reports: No Symptoms Musculoskeletal: Reports: No Symptoms Neurological: Reports: No Symptoms - Patient Data Vital Signs - Most Recent: Last Vital Signs Temp 36.7 C 03/05/21 21:00 Pulse 97 03/05/21 21:00 Resp 18 03/05/21 21:00 BP 141/94 H 03/05/21 21:00 Pulse Ox 96 03/05/21 21:00 Weight - Most Recent: 138.845 kg I&O - Last 24 Hours: Intake & Output 03/05/21 03/05/21 03/06/21 14:59 22:59 06:59 Intake Total 2250 Balance 2250 Lab Results - Last 24 Hours: Laboratory Results - last 24 hr 03/05/21 Range/Units 04:53 POC Glucose 168 H (70-99) mg/dL Med Orders - Current: Current Medications Acetaminophen (Acetaminophen 325 Mg Tab) 650 mg PO Q4H PRN PRN Reason: mild pain or fever Benzocaine/Menthol (Benzocaine/Menthol 20%-0.5% [place] 56 Gm Canister) 0 gm TOP ASDIRECTED PRN PRN Reason: Perineal Comfort Measure Last Admin: 03/05/21 10:54 Dose: 1 can Documented by: Docusate Sodium (Docusate Sodium 100 Mg Cap) 100 mg PO BID PRN PRN Reason: Constipation Ibuprofen (Ibuprofen 600 Mg Tab) 600 mg PO Q6H PRN PRN Reason: Mild pain or fever Witch Sharon (Witch Sharon Medicated Pads 40/Jar) 1 pad TOP ASDIRECTED PRN PRN Reason: Perineal Comfort Measure Last Admin: 03/05/21 10:55 Dose: 1 canister Documented by: Discontinued Medications Bupivacaine HCl (Bupivacaine 0.25% 10 Ml Sdv) 10 ml .ROUTE .STK-MED ONE Stop: 03/05/21 00:01 Diphenhydramine HCl (Diphenhydramine 50 Mg/Ml Sdv) 25 mg IVPUSH Q6H PRN PRN Reason: pruritis Ephedrine Sulfate (Ephedrine 50 Mg/Ml Sdv) 5 mg IVPUSH ASDIRECTED PRN PRN Reason: Hypotension Fentanyl (Fentanyl 100 Mcg/2 Ml Sdv) 100 mcg EPIDUR Q3H PRN PRN Reason: Pain Last Admin: 03/05/21 04:30 Dose: 100 mcg Documented by: Fentanyl/Bupivacaine HCl (Bupivacaine/Fentanyl/Ns 100 Ml Bag) 100 ml EPIDUR ASDIRECTED PRN PRN Reason: Pain Last Admin: 03/05/21 04:54 Dose: 100 ml Documented by: Oxytocin/Lactated Ringer's (Pitocin In Lr 10 Units/1,000 Ml) 10 unit in 1,000 mls @ 12 mls/hr IV TITRATE JOSE A; Protocol Oxytocin/Lactated Ringer's (Pitocin In Lr 10 Units/1,000 Ml) 10 unit in 1,000 mls @ 500 mls/hr IV .CONTINUOUS JOSE A Last Admin: 03/05/21 06:36 Dose: 500 mls/hr Documented by: Lactated Ringer's (Ringers, Lactated) 1,000 mls @ 40 mls/hr IV ASDIRECTED JOSE A Last Admin: 03/05/21 04:58 Dose: 999 mls/hr Documented by: Misoprostol (Misoprostol 25 Mcg (1/4 Of 100 Mcg) Tab) 25 mcg VAG Q4H PRN PRN Reason: cervical ripening Last Admin: 03/04/21 20:18 Dose: 25 mcg Documented by: Misoprostol (Misoprostol 25 Mcg (1/4 Of 100 Mcg) Tab) Confirm Administered Dose 25 mcg .ROUTE .STK-MED ONE Stop: 03/04/21 20:12 Last Admin: 03/04/21 21:03 Dose: Not Given Documented by: Misoprostol (Misoprostol 200 Mcg Tab) Confirm Administered Dose 600 mcg .ROUTE .STK-MED ONE Stop: 03/05/21 06:44 Last Admin: 03/05/21 06:44 Dose: 600 mcg Documented by: Misoprostol (Misoprostol 200 Mcg Tab) 600 mcg PO NOW STA Stop: 03/05/21 06:58 Nalbuphine HCl (Nalbuphine 10 Mg/1 Ml Vial) 10 mg IVPUSH Q2H PRN PRN Reason: Pain Last Admin: 03/05/21 02:08 Dose: 10 mg Documented by: Ondansetron HCl (Ondansetron 4 Mg/2 Ml Sdv) 4 mg IVPUSH Q4H PRN PRN Reason: Nausea/Vomiting Sodium Chloride (Sodium Chloride 0.9% 10 Ml Syringe) 10 ml FLUSH ASDIRECTED PRN PRN Reason: Keep Vein Open - Interaction Infant Disposition, : [place] in Room with Family Interaction: Holding Infant Feeding: Attempted ; Nursed Fair/Poor, Bottle Fed , Other (see below) (Pumping) Support Person: Significant Other - Recovery Exam Fundal Tone: Firm Fundal Level: 1 Fingerbreadths Below Umbilicus Fundal Placement: Midline Lochia Amount: Small Lochia Color: Rubra/Red Perineum Description: Other (see below) Other Perinuem Description: 2nd degree laceration with repair Episiotomy/Laceration: Approximated Bladder Status: Voiding Urinary Elimination: Voided Other Urinary Elimination, : bladder empty at time of delivery, no urge to void - Exam General: Alert, Oriented, Cooperative GI/Abdominal Exam: Soft, Non-Tender - Problem List & Annotations (1) 37 weeks gestation of SNOMED Code(s): 79836780 Code(s): Z3A.37 - 37 WEEKS GESTATION OF Status: Acute Current Visit: Yes (2) Gestational diabetes SNOMED Code(s): 61394722 Code(s): O24.419 - GESTATIONAL DIABETES MELLITUS IN , UNSP CONTROL Status: Acute Current Visit: Yes Qualifiers: Gestational diabetes mellitus control: diet-controlled Trimester: third trimester Qualified Code(s): O24.410 - Gestational diabetes mellitus in , diet controlled (3) Preeclampsia SNOMED Code(s): 117211811 Code(s): O14.90 - UNSPECIFIED PRE-ECLAMPSIA, UNSPECIFIED TRIMESTER Status: Acute Current Visit: Yes Qualifiers: Trimester: third trimester Qualified Code(s): O14.93 - Unspecified pre- eclampsia, third trimester (4) Vaginal delivery SNOMED Code(s): 939372148 Code(s): O80 - ENCOUNTER FOR FULL-TERM UNCOMPLICATED DELIVERY Status: Acute Current Visit: Yes - Problem List Review Problem List Initiated/Reviewed/Updated: Yes - My Orders Last 24 Hours: My Active Orders 03/05/21 Breakfast Regular Diet [DIET] 03/05/21 07:56 Acetaminophen [TylenoL] 650 mg PO Q4H PRN Benzocaine/Menthol [Dermoplast Pain Relief [place]] See Dose Instructions TOP ASDIRECTED PRN Docusate Sodium [Colace] 100 mg PO BID PRN Ibuprofen [Motrin] 600 mg PO Q6H PRN witch Sharon [Tucks] 1 pad TOP ASDIRECTED PRN Heat Therapy [OM.PC] PRN 03/05/21 07:56 Activity as Tolerated [RC] PER UNIT ROUTINE Vital Signs [RC] 03,,15,21 Assess Lochia [WOMSER] Per Unit Routine Assess Uterine Involution [WOMSER] Per Unit Routine Breast Pump [WOMSER] Per Unit Routine Ice Therapy [OM.PC] Per Unit Routine Perineal Care [OM.PC] Per Unit Routine Peripheral IV Discontinue [OM.PC] Routine Sitz Bath [OM.PC] Per Unit Routine 03/06/21 07:00 Blood Glucose Check, Bedside [RC] ONETIME 03/06/21 07:56 Heat Therapy [OM.PC] PRN - Assessment Assessment:: PPD#1 - Plan Plan:: * Routine cares * Breast feeding and supplementing currently * BP's are mild range after delivery. Will need 1 week BP check on discharge * Fasting blood sugar to be done this AM * Discharge home tomorrow
--- NOTE | 2021-03-07 06:08 | PCM.PNPP ---
- General Info Date of Service: 03/07/21 Functional Status: Reports: Pain Controlled, Tolerating Diet, Ambulating, Urinating - Review of Systems General: Reports: No Symptoms Pulmonary: Reports: No Symptoms Cardiovascular: Reports: No Symptoms Gastrointestinal: Reports: No Symptoms Genitourinary: Reports: No Symptoms Musculoskeletal: Reports: No Symptoms Neurological: Reports: No Symptoms - Patient Data Vital Signs - Most Recent: Last Vital Signs Temp 36.4 C 03/07/21 03:49 Pulse 79 03/07/21 03:49 Resp 18 03/07/21 03:49 BP 146/81 H 03/07/21 03:49 Pulse Ox 97 03/07/21 03:49 Weight - Most Recent: 138.845 kg I&O - Last 24 Hours: Intake & Output 03/06/21 03/06/21 03/07/21 14:59 22:59 06:59 Intake Total 420 Balance 420 Lab Results - Last 24 Hours: Laboratory Results - last 24 hr 03/06/21 Range/Units 06:03 POC Glucose 118 H (70-99) mg/dL Med Orders - Current: Current Medications Acetaminophen (Acetaminophen 325 Mg Tab) 650 mg PO Q4H PRN PRN Reason: mild pain or fever Benzocaine/Menthol (Benzocaine/Menthol 20%-0.5% [place] 56 Gm Canister) 0 gm TOP ASDIRECTED PRN PRN Reason: Perineal Comfort Measure Last Admin: 03/05/21 10:54 Dose: 1 can Documented by: Docusate Sodium (Docusate Sodium 100 Mg Cap) 100 mg PO BID PRN PRN Reason: Constipation Ibuprofen (Ibuprofen 600 Mg Tab) 600 mg PO Q6H PRN PRN Reason: Mild pain or fever Last Admin: 03/06/21 18:42 Dose: 600 mg Documented by: Bee Childress (Bee Childress Medicated Pads 40/Jar) 1 pad TOP ASDIRECTED PRN PRN Reason: Perineal Comfort Measure Last Admin: 03/05/21 10:55 Dose: 1 canister Documented by: Discontinued Medications Bupivacaine HCl (Bupivacaine 0.25% 10 Ml Sdv) 10 ml .ROUTE .STK-MED ONE Stop: 03/05/21 00:01 Diphenhydramine HCl (Diphenhydramine 50 Mg/Ml Sdv) 25 mg IVPUSH Q6H PRN PRN Reason: pruritis Ephedrine Sulfate (Ephedrine 50 Mg/Ml Sdv) 5 mg IVPUSH ASDIRECTED PRN PRN Reason: Hypotension Fentanyl (Fentanyl 100 Mcg/2 Ml Sdv) 100 mcg EPIDUR Q3H PRN PRN Reason: Pain Last Admin: 03/05/21 04:30 Dose: 100 mcg Documented by: Fentanyl/Bupivacaine HCl (Bupivacaine/Fentanyl/Ns 100 Ml Bag) 100 ml EPIDUR ASDIRECTED PRN PRN Reason: Pain Last Admin: 03/05/21 04:54 Dose: 100 ml Documented by: Oxytocin/Lactated Ringer's (Pitocin In Lr 10 Units/1,000 Ml) 10 unit in 1,000 mls @ 12 mls/hr IV TITRATE JOSE A; Protocol Oxytocin/Lactated Ringer's (Pitocin In Lr 10 Units/1,000 Ml) 10 unit in 1,000 mls @ 500 mls/hr IV .CONTINUOUS JOSE A Last Admin: 03/05/21 06:36 Dose: 500 mls/hr Documented by: Lactated Ringer's (Ringers, Lactated) 1,000 mls @ 40 mls/hr IV ASDIRECTED JOSE A Last Admin: 03/05/21 04:58 Dose: 999 mls/hr Documented by: Misoprostol (Misoprostol 25 Mcg (1/4 Of 100 Mcg) Tab) 25 mcg VAG Q4H PRN PRN Reason: cervical ripening Last Admin: 03/04/21 20:18 Dose: 25 mcg Documented by: Misoprostol (Misoprostol 25 Mcg (1/4 Of 100 Mcg) Tab) Confirm Administered Dose 25 mcg .ROUTE .STK-MED ONE Stop: 03/04/21 20:12 Last Admin: 03/04/21 21:03 Dose: Not Given Documented by: Misoprostol (Misoprostol 200 Mcg Tab) Confirm Administered Dose 600 mcg .ROUTE .STK-MED ONE Stop: 03/05/21 06:44 Last Admin: 03/05/21 06:44 Dose: 600 mcg Documented by: Misoprostol (Misoprostol 200 Mcg Tab) 600 mcg PO NOW STA Stop: 03/05/21 06:58 Nalbuphine HCl (Nalbuphine 10 Mg/1 Ml Vial) 10 mg IVPUSH Q2H PRN PRN Reason: Pain Last Admin: 03/05/21 02:08 Dose: 10 mg Documented by: Ondansetron HCl (Ondansetron 4 Mg/2 Ml Sdv) 4 mg IVPUSH Q4H PRN PRN Reason: Nausea/Vomiting Sodium Chloride (Sodium Chloride 0.9% 10 Ml Syringe) 10 ml FLUSH ASDIRECTED PRN PRN Reason: Keep Vein Open - Infant Interaction Infant Disposition, : [place] in Room with Family Interaction: Holding Infant Feeding: Attempted ; Nursed Fair/Poor, Bottle Fed , Other (see below) (Pumping) Support Person: Significant Other - Recovery Exam Fundal Tone: Firm Fundal Level: At Umbilicus Fundal Placement: Midline Lochia Amount: Small Lochia Color: Rubra/Red Perineum Description: Intact, Minimal Bruising/Swelling Other Perinuem Description: 2nd degree laceration with repair Episiotomy/Laceration: None Bladder Status: Voiding Urinary Elimination: Voided Other Urinary Elimination, : bladder empty at time of delivery, no urge to void - Exam General: Alert, Oriented, Cooperative GI/Abdominal Exam: Soft, Non-Tender - Problem List & Annotations (1) 37 weeks gestation of SNOMED Code(s): 53603783 Code(s): Z3A.37 - 37 WEEKS GESTATION OF Status: Acute Current Visit: Yes (2) Gestational diabetes SNOMED Code(s): 65215356 Code(s): O24.419 - GESTATIONAL DIABETES MELLITUS IN , UNSP CONTROL Status: Acute Current Visit: Yes Qualifiers: Gestational diabetes mellitus control: diet-controlled Trimester: third trimester Qualified Code(s): O24.410 - Gestational diabetes mellitus in , diet controlled (3) Preeclampsia SNOMED Code(s): 204061700 Code(s): O14.90 - UNSPECIFIED PRE-ECLAMPSIA, UNSPECIFIED TRIMESTER Status: Acute Current Visit: Yes Qualifiers: Trimester: third trimester Qualified Code(s): O14.93 - Unspecified pre- eclampsia, third trimester (4) Vaginal delivery SNOMED Code(s): 110240072 Code(s): O80 - ENCOUNTER FOR FULL-TERM UNCOMPLICATED DELIVERY Status: Acute Current Visit: Yes - Problem List Review Problem List Initiated/Reviewed/Updated: Yes - My Orders Last 24 Hours: My Active Orders 03/06/21 07:00 Blood Glucose Check, Bedside [RC] ONETIME 03/06/21 07:56 Heat Therapy [OM.PC] PRN 03/07/21 06:08 Ready for Discharge [RC] PER UNIT ROUTINE - Assessment Assessment:: PPD#2 - Plan Plan:: * Routine cares * Breast feeding and supplementing currently * BP's continue to be mild range and with some normal values too. Will need 1 week BP check on discharge * Fasting blood sugar yesterday elevated at 118. Will need 2hr GTT at 6 weeks * Discharge home today
--- NOTE | 2021-03-07 06:08 | PCM.DCSUM1 ---
Discharge Summary - Discharge Data Discharge Date: 03/07/21 Discharge Disposition: Home, Self-Care 01 Condition: Good - Referral to Home Health Primary Care Physician: Caridad Santos MD - Discharge Diagnosis/Problem(s) (1) 37 weeks gestation of SNOMED Code(s): 18870598 ICD Code: Z3A.37 - 37 WEEKS GESTATION OF Status: Acute Current Visit: Yes (2) Gestational diabetes SNOMED Code(s): 48581120 ICD Code: O24.419 - GESTATIONAL DIABETES MELLITUS IN , UNSP CONTROL Status: Acute Current Visit: Yes Qualifiers: Gestational diabetes mellitus control: diet-controlled Trimester: third trimester Qualified Code(s): O24.410 - Gestational diabetes mellitus in pr egnancy, diet controlled (3) Preeclampsia SNOMED Code(s): 092076816 ICD Code: O14.90 - UNSPECIFIED PRE-ECLAMPSIA, UNSPECIFIED TRIMESTER Status: Acute Current Visit: Yes Qualifiers: Trimester: third trimester Qualified Code(s): O14.93 - Unspecified pre- eclampsia, third trimester (4) Vaginal delivery SNOMED Code(s): 592413590 ICD Code: O80 - ENCOUNTER FOR FULL-TERM UNCOMPLICATED DELIVERY Status: Acute Current Visit: Yes - Patient Summary/Data Complications: None Consults: None Recommended Follow-up Testing/Procedures: Follow up in 1 week for BP check and 3 weeks for check Hospital Course: 20 y/o at 37 1/7 wks presented for IOL for preeclampsia. IOL done with cytotec and then patient did not require further augmentation. Underwent an uncomplicated . See delivery note. BP's remained normal to mild range. Discharged home on PPD#2 - Patient Instructions Diet: Regular Diet as Tolerated Activity: As Tolerated Activity, Other: Pelvic rest for 6 weeks Driving: May Drive Today Showering/Bathing: May Shower Showering/Bathing, Other: May Bathe Notify Provider of: Fever, Increased Pain, Swelling and Redness, Drainage, Nausea and/or Vomiting - Discharge Plan *PRESCRIPTION DRUG MONITORING PROGRAM REVIEWED*: No *COPY OF PRESCRIPTION DRUG MONITORING REPORT IN PATIENT LUZ ELENA: No Home Medications: Home Meds No122/Iron/Folic Acid [ Multi Tablet] 1 each PO DAILY 03/04/21 [History] Docusate Sodium [Colace] 100 mg PO BID PRN cap 03/06/21 [Rx] Ibuprofen [Motrin] 600 mg PO Q6H PRN tablet 03/06/21 [Rx] Patient Handouts: Care After Vaginal Delivery Referrals: Caridad Santos MD [Primary Care Provider] - (1 weeks for BP check - RN only 3 weeks for check ) - Discharge Summary/Plan Comment DC Time >30 min.: No - Patient Data Vitals - Most Recent: Last Vital Signs Temp 36.4 C 03/07/21 03:49 Pulse 79 03/07/21 03:49 Resp 18 03/07/21 03:49 BP 146/81 H 03/07/21 03:49 Pulse Ox 97 03/07/21 03:49 Weight - Most Recent: 138.845 kg I&O - Last 24 hours: Intake & Output 03/06/21 03/06/21 03/07/21 14:59 22:59 06:59 Intake Total 420 Balance 420 Lab Results - Last 24 hrs: Laboratory Results - last 24 hr 03/06/21 Range/Units 06:03 POC Glucose 118 H (70-99) mg/dL Med Orders - Current: Current Medications Acetaminophen (Acetaminophen 325 Mg Tab) 650 mg PO Q4H PRN PRN Reason: mild pain or fever Benzocaine/Menthol (Benzocaine/Menthol 20%-0.5% [place] 56 Gm Canister) 0 gm TOP ASDIRECTED PRN PRN Reason: Perineal Comfort Measure Last Admin: 03/05/21 10:54 Dose: 1 can Documented by: Docusate Sodium (Docusate Sodium 100 Mg Cap) 100 mg PO BID PRN PRN Reason: Constipation Ibuprofen (Ibuprofen 600 Mg Tab) 600 mg PO Q6H PRN PRN Reason: Mild pain or fever Last Admin: 03/06/21 18:42 Dose: 600 mg Documented by: Bee Childress (Bee Seymourel Medicated Pads 40/Jar) 1 pad TOP ASDIRECTED PRN PRN Reason: Perineal Comfort Measure Last Admin: 03/05/21 10:55 Dose: 1 canister Documented by: Discontinued Medications Bupivacaine HCl (Bupivacaine 0.25% 10 Ml Sdv) 10 ml .ROUTE .STK-MED ONE Stop: 03/05/21 00:01 Diphenhydramine HCl (Diphenhydramine 50 Mg/Ml Sdv) 25 mg IVPUSH Q6H PRN PRN Reason: pruritis Ephedrine Sulfate (Ephedrine 50 Mg/Ml Sdv) 5 mg IVPUSH ASDIRECTED PRN PRN Reason: Hypotension Fentanyl (Fentanyl 100 Mcg/2 Ml Sdv) 100 mcg EPIDUR Q3H PRN PRN Reason: Pain Last Admin: 03/05/21 04:30 Dose: 100 mcg Documented by: Fentanyl/Bupivacaine HCl (Bupivacaine/Fentanyl/Ns 100 Ml Bag) 100 ml EPIDUR ASDIRECTED PRN PRN Reason: Pain Last Admin: 03/05/21 04:54 Dose: 100 ml Documented by: Oxytocin/Lactated Ringer's (Pitocin In Lr 10 Units/1,000 Ml) 10 unit in 1,000 mls @ 12 mls/hr IV TITRATE JOSE A; Protocol Oxytocin/Lactated Ringer's (Pitocin In Lr 10 Units/1,000 Ml) 10 unit in 1,000 mls @ 500 mls/hr IV .CONTINUOUS JOSE A Last Admin: 03/05/21 06:36 Dose: 500 mls/hr Documented by: Lactated Ringer's (Ringers, Lactated) 1,000 mls @ 40 mls/hr IV ASDIRECTED JOSE A Last Admin: 03/05/21 04:58 Dose: 999 mls/hr Documented by: Misoprostol (Misoprostol 25 Mcg (1/4 Of 100 Mcg) Tab) 25 mcg VAG Q4H PRN PRN Reason: cervical ripening Last Admin: 03/04/21 20:18 Dose: 25 mcg Documented by: Misoprostol (Misoprostol 25 Mcg (1/4 Of 100 Mcg) Tab) Confirm Administered Dose 25 mcg .ROUTE .STK-MED ONE Stop: 03/04/21 20:12 Last Admin: 03/04/21 21:03 Dose: Not Given Documented by: Misoprostol (Misoprostol 200 Mcg Tab) Confirm Administered Dose 600 mcg .ROUTE .STK-MED ONE Stop: 03/05/21 06:44 Last Admin: 03/05/21 06:44 Dose: 600 mcg Documented by: Misoprostol (Misoprostol 200 Mcg Tab) 600 mcg PO NOW STA Stop: 03/05/21 06:58 Nalbuphine HCl (Nalbuphine 10 Mg/1 Ml Vial) 10 mg IVPUSH Q2H PRN PRN Reason: Pain Last Admin: 03/05/21 02:08 Dose: 10 mg Documented by: Ondansetron HCl (Ondansetron 4 Mg/2 Ml Sdv) 4 mg IVPUSH Q4H PRN PRN Reason: Nausea/Vomiting Sodium Chloride (Sodium Chloride 0.9% 10 Ml Syringe) 10 ml FLUSH ASDIRECTED PRN PRN Reason: Keep Vein Open
== END 2021-03-07 10:25 | disposition home or self-care (01) | DRG 560 ==
LOC: JD.OB 06:35 → OBSVTOIN 03-05 06:35
PROVIDERS: ADMIT Obstetrics & Gynecology; ATTEND Obstetrics & Gynecology
PROC: 10E0XZZ Delivery of Products of Conception, External Approach (ICD-10-PCS; principal; 2021-03-05)
PROC: 0KQM0ZZ Repair Perineum Muscle, Open Approach (ICD-10-PCS; 2021-03-05)
PROC: 3E0P7VZ Introduction of Hormone into Female Reproductive, Via Natural or Artificial Opening (ICD-10-PCS; 2021-03-05)
PROC: 3E0R3BZ Introduction of Anesthetic Agent into Spinal Canal, Percutaneous Approach (ICD-10-PCS; 2021-03-05)
DX: O14.93 Unspecified pre-eclampsia, third trimester (principal); O24.410 Gestational diabetes mellitus in pregnancy, diet controlled; Z37.0 Single live birth; Z3A.37 37 weeks gestation of pregnancy; O24.414 Gestational diabetes mellitus in pregnancy, insulin controlled; O70.1 Second degree perineal laceration during delivery; O99.62 Diseases of the digestive system complicating childbirth; K21.9 Gastro-esophageal reflux disease without esophagitis; O99.214 Obesity complicating childbirth; E66.9 Obesity, unspecified; Z20.822 Contact with and (suspected) exposure to COVID-19
CPT/HCPCS: 36415; 51701; 59025; 59409; 82565; 82570; 82947; 84156; 84450; 84460; 85027; 86592; 86850; 86900; 86901; A9270-GY; J2300; J2590; J3010; J3490; J7120; U0002

== ENCOUNTER 2021-07-13 22:14 | Emergency (ER) | payer BC | END 2021-07-13 22:27 | disposition left against medical advice (07) | LOC: JD.ED 22:14 | DX: U07.1 COVID-19 (principal); Z53.21 Procedure and treatment not carried out due to patient leaving prior to being seen by health care provider ==

== ENCOUNTER 2021-12-26 07:31 | Day surgery (SDC) | payer BC ==
[2021-12-26] MEDS: Lactated Ringers 1,000 ML IV SCH ×2 (07:03→08:15)
[~2021-12-26 07:31] MED LIST: Doxycycline 100 MG Cap PO ONE; Lidocaine 1% 50 ML MDV ONE; Lidocaine 1% 6 ML ONE; Lidocaine 1%/Sod Bicarbonate in NS 8.4% 1 ML Syringe IDERM PRN; Midazolam 1 MG/ML 2 ML SDV ONE; Propofol 200 MG/20 ML SDV ONE; Sodium Chloride 0.9% 10 ML Syringe FLUSH PRN; Sodium Chloride 0.9% 10 ML Syringe FLUSH SCH; fentaNYL 100 MCG/2 ML SDV ONE
[2021-12-26] MEDS ORDERED: Ketorolac 30 MG/ML SDV ONE (07:38)
[2021-12-26] MEDS ORDERED: Ondansetron 4 MG/2 ML SDV ONE (07:38)
== END 2021-12-26 08:54 | disposition home or self-care (01) ==
LOC: JD.SDS 07:31
PROVIDERS: ATTEND Obstetrics & Gynecology
DX: O02.89 Other abnormal products of conception (principal); I10 Essential (primary) hypertension; E66.9 Obesity, unspecified
CPT/HCPCS: 59840; A9270; J1885; J2001; J2250; J2405; J2704; J3010; J7120

== ENCOUNTER 2021-12-30 09:17 | Emergency (ER) | payer BC | END 2021-12-30 10:33 | disposition home or self-care (01) | LOC: SUPCPDRO 09:17 → JD.ED 09:17 | DX: N93.9 Abnormal uterine and vaginal bleeding, unspecified (principal); I10 Essential (primary) hypertension; K21.9 Gastro-esophageal reflux disease without esophagitis; E66.9 Obesity, unspecified; Z68.41 Body mass index [BMI] 40.0-44.9, adult; Z86.16 Personal history of COVID-19 | CPT/HCPCS: 99283 ==

== ENCOUNTER 2022-07-12 21:16 | Emergency (ER) | payer BC | END 2022-07-13 02:26 | disposition home or self-care (01) | LOC: JD.ED 21:16 | DX: O26.851 Spotting complicating pregnancy, first trimester (principal); Z86.16 Personal history of COVID-19; Z3A.01 Less than 8 weeks gestation of pregnancy | CPT/HCPCS: 36415; 76817; 76817-26; 81003; 84144; 84702; 85025; 86900; 86901; 99284 ==

== ENCOUNTER 2023-02-24 07:14 | Day surgery (SDC) | payer BC ==
[~2023-02-24 07:14] MED LIST changes: -Doxycycline 100 MG Cap PO ONE; +Lactated Ringers 1,000 ML IV SCH; +Lidocaine 1% 5 ML VIAL ONE; -Lidocaine 1% 50 ML MDV ONE; -Lidocaine 1% 6 ML ONE; +Ondansetron 4 MG/2 ML SDV ONE
[2023-02-24] MEDS ORDERED: Lidocaine 1% 50 ML MDV ONE (07:15)
[2023-02-24] MEDS ORDERED: Doxycycline Monohydrate 100 MG Cap PO ONE (08:00)
[2023-02-24] MEDS ORDERED: Succinylcholine 200 MG/10 ML MDV ONE (08:02)
[2023-02-24] MEDS ORDERED: Dexamethasone 4 MG/ML 5 ML MDV ONE (08:07)
[2023-02-24] MEDS ORDERED: Ketorolac 30 MG/ML SDV ONE (08:13)
[2023-02-24] MEDS ORDERED: fentaNYL 100 MCG/2 ML SDV ONE (08:14)
[2023-02-24] MEDS ORDERED: HYDROmorphone 0.5 MG/0.5 ML Syringe IVPUSH PRN (08:17)
[2023-02-24] MEDS ORDERED: fentaNYL 100 MCG/2 ML SDV IVPUSH PRN (08:17)
[2023-02-24] MEDS ORDERED: Ondansetron 4 MG/2 ML SDV IVPUSH PRN (08:17)
[2023-02-24] MEDS ORDERED: Lactated Ringers 1,000 ML ONE (08:19)
== END 2023-02-24 09:39 | disposition home or self-care (01) ==
LOC: JD.SDS 07:14
PROVIDERS: ATTEND Obstetrics & Gynecology
DX: O02.1 Missed abortion (principal)
CPT/HCPCS: 36415; 59820; 81025; 85025; 86850; 86900; 86901; 88299; A9270; J0330; J1100; J1885; J2001; J2250; J2405; J2704; J3010; J7120; 01965; J3490

== ENCOUNTER 2023-11-30 15:25 | Inpatient (IN) | payer BC ==
[2023-11-30] MEDS ORDERED: Ampicillin 2 GM Vial ONE (15:31)
[2023-11-30] MEDS ORDERED: Sodium Chloride 0.9% 100 ML ONE (15:31)
[2023-11-30] MEDS ORDERED: Nalbuphine HCl 10 MG/ 1ML Amp IVPUSH PRN (15:32)
[2023-11-30] MEDS ORDERED: Acetaminophen 325 MG Tab PO PRN ×2 (15:32→16:24)
[2023-11-30] MEDS ORDERED: Ondansetron 4 MG/2 ML SDV IVPUSH PRN (15:32)
[2023-11-30] MEDS ORDERED: Sodium Chloride 0.9% 10 ML Syringe FLUSH PRN (15:32)
[2023-11-30] MEDS ORDERED: Calcium Carbonate 500 MG Tab.Chew PO PRN (15:32)
[2023-11-30] MEDS ORDERED: Lidocaine 1% 50 ML MDV INJECT PRN (15:32)
[2023-11-30] MEDS ORDERED: Sodium Chloride 0.9% 1,000 ML ONE (15:36)
[2023-11-30] MEDS ORDERED: Lactated Ringers 1,000 ML IV SCH (15:45)
[2023-11-30] MEDS ORDERED: Oxytocin/Lactated Ringers 30 UNIT/500 ML BAG IV SCH (15:45)
[2023-11-30] MEDS ORDERED: Oxytocin 10 Units/1 ML SDV ONE (15:52)
[2023-11-30] MEDS ORDERED: Ampicillin 2 GM in Sodium Chloride 0.9% 100 ML IV ONE (16:00)
[2023-11-30 16:06] LABS: BASOPHILS PERCENT AUTO 0.2 % (0.0-1.0); EOSINOPHILS PERCENT AUTO 0.2 % (0.0-6.0); HEMATOCRIT 37.3 % (37.0-47.0); HEMOGLOBIN 12.6 gm/dl (12.0-16.0); IMMATURE GRAN ABSOLUTE AUTO 0.05 K/mm3 (0.00-0.05); IMMATURE GRAN PERCENT AUTO 0.5 % (0.0-0.4); LYMPHOCYTES ABSOLUTE AUTO 1.6 K/mm3 (1.0-4.8); LYMPHOCYTES PERCENT AUTO 15.2 % (24.0-44.0); MEAN CORPUSCULAR HEMOGLOBIN 29.2 pg (28.0-32.0); MEAN CORPUSCULAR HGB CONC 33.8 g/dl (32.0-36.0); MEAN CORPUSCULAR VOLUME 86.3 fl (83.0-99.0); MEAN PLATELET VOLUME 11.5 fl (9.4-12.3); MONOCYTES ABSOLUTE AUTO 0.4 K/mm3 (0.0-0.8); NEUTROPHILS ABSOLUTE AUTO 8.6 K/mm3 (1.8-7.7); NEUTROPHILS PERCENT AUTO 79.9 % (41.0-71.0); PLATELET COUNT,PLT 209 K/mm3 (150-400); RED BLOOD CELL COUNT 4.32 M/mm3 (4.10-5.30); WHITE BLOOD CELL COUNT,WBC 10.78 K/mm3 (3.9-11.3)
[2023-11-30] MEDS ORDERED: Witch Hazel Medicated Pads 40/Jar TOP PRN (16:24)
[2023-11-30] MEDS ORDERED: Docusate Sodium 100 MG Cap PO PRN (16:24)
[2023-11-30] MEDS ORDERED: Benzocaine/Menthol 20%-0.5% Spray 78 GM Cannister TOP PRN (16:24)
[2023-11-30] MEDS ORDERED: Ibuprofen 600 MG Tab PO PRN (16:24)
[2023-11-30 16:25] LABS: A/G RATIO 0.5 (1-2); ALANINE AMINOTRANSFERASE,ALT 14 U/L (14-59); ALBUMIN 2.2 g/dl (3.4-5.0); ALKALINE PHOSPHATASE 95 U/L (46-116); ANION GAP 24.3 (5-15); ASPARTATE AMNIOTRANSFERASE,AST 11 U/L (15-37); BILIRUBIN TOTAL 0.4 mg/dL (0.2-1.0); BLOOD UREA NITROGEN,BUN 14 mg/dL (7-18); BUN/CREATININE RATIO 12.7 (14-18); CALCIUM 10.7 mg/dL (8.5-10.1); CARBON DIOXIDE,CO2 10 mEq/L (21-32); CHLORIDE,CL 97 mEq/L (98-107); CREATININE 1.1 mg/dL (0.55-1.02); ESTIMATED GFR 72 mL/min (>60); POTASSIUM,K 4.3 mEq/L (3.5-5.1); PROTEIN TOTAL,TP 6.8 g/dl (6.4-8.2); SODIUM,NA 127 mEq/L (136-145)
[2023-11-30] MEDS ORDERED: Measles, Mumps & Rubella Vaccine 0.5 ML SDV SUBCUT ONE (16:25)
[2023-11-30 16:27] LABS: GLUCOSE RANDOM 671 mg/dL (70-99)
[2023-11-30 16:29] LABS: PROTHROMBIN TIME 9.8 SECONDS (9.7-12.0)
[2023-11-30 16:31] LABS: PTT,PARTIAL THROMBOPLSTIN TIME 25.2 SECONDS (21.7-31.4)
[2023-11-30 16:33] LABS: FIBRINOGEN 653 mg/dL (187-446)
[2023-11-30 16:37] LABS: INR < 0.93
[2023-11-30] MEDS: Insulin Regular in 0.9 % NACL 100 ML IV SCH ×2 (17:57→23:42)
[2023-11-30] MEDS ORDERED: Sodium Chloride 0.9% 1,000 ML IV SCH (18:00)
[2023-11-30 18:03] LABS: HEMATOCRIT 35.7 % (37.0-47.0); HEMOGLOBIN 12.5 gm/dl (12.0-16.0); MEAN CORPUSCULAR HEMOGLOBIN 29.3 pg (28.0-32.0); MEAN CORPUSCULAR VOLUME 83.6 fl (83.0-99.0); MEAN PLATELET VOLUME 11.4 fl (9.4-12.3); PLATELET COUNT,PLT 202 K/mm3 (150-400); RED BLOOD CELL COUNT 4.27 M/mm3 (4.10-5.30); WHITE BLOOD CELL COUNT,WBC 12.34 K/mm3 (3.9-11.3)
[2023-11-30 18:44] LABS: HEMOGLOBIN A1C 9.4 %
[2023-11-30] MEDS ORDERED: Ampicillin 1 GM in Sodium Chloride 0.9% 100 ML IV SCH (20:00)
[2023-11-30] MEDS ORDERED: Sodium Chloride 0.9% 10 ML Syringe FLUSH SCH (21:00)
[2023-11-30 22:46] LABS: ANION GAP 19.5 (5-15); CALCIUM 10.2 mg/dL (8.5-10.1); POTASSIUM,K 3.5 mEq/L (3.5-5.1)
[2023-12-01] MEDS ORDERED: Sodium Chloride 0.45% 1,000 ML IV SCH (00:15)
[2023-12-01] MEDS: Potassium Chloride 10 MEQ in Premix Bag 1 BAG IV SCH ×8 (00:35→20:30)
[2023-12-01 02:57] LABS: ANION GAP 18.6 (5-15); BUN/CREATININE RATIO 12.2 (14-18); CALCIUM 9.9 mg/dL (8.5-10.1); CREATININE 0.9 mg/dL (0.55-1.02); EST CRCL DRUG DOSING (CG) 103.33 mL/min; POTASSIUM,K 3.6 mEq/L (3.5-5.1)
[2023-12-01] MEDS ORDERED: Dextrose 5%-0.45% NaCl 1,000 ML IV SCH ×2 (05:45→09:00)
[2023-12-01 07:39] LABS: ANION GAP 17.3 (5-15); BUN/CREATININE RATIO 12.2 (14-18); CALCIUM 9.5 mg/dL (8.5-10.1); CREATININE 0.9 mg/dL (0.55-1.02); EST CRCL DRUG DOSING (CG) 103.33 mL/min; POTASSIUM,K 3.3 mEq/L (3.5-5.1)
[2023-12-01] MEDS: Enoxaparin 40 MG/0.4 ML Syringe SUBCUT SCH (09:09)
[2023-12-01 11:41] LABS: ANION GAP 17.9 (5-15); BUN/CREATININE RATIO 14.4 (14-18); CALCIUM 9.1 mg/dL (8.5-10.1); CREATININE 0.9 mg/dL (0.55-1.02); EST CRCL DRUG DOSING (CG) 103.33 mL/min; POTASSIUM,K 3.9 mEq/L (3.5-5.1)
[2023-12-01] MEDS ORDERED: Sodium Chloride 0.9% 1,000 ML IV SCH (11:45)
[2023-12-01] MEDS: Sodium Chloride 0.9% 1,000 ML IV SCH ×2 (14:07→17:16)
[2023-12-01 15:31] LABS: GROUP B STREP BY PCR NEGATIVE (NEGATIVE)
[2023-12-01 15:35] LABS: ANION GAP 17.6 (5-15); BUN/CREATININE RATIO 13.3 (14-18); CALCIUM 8.9 mg/dL (8.5-10.1); CREATININE 0.9 mg/dL (0.55-1.02); EST CRCL DRUG DOSING (CG) 103.33 mL/min; POTASSIUM,K 3.6 mEq/L (3.5-5.1)
[2023-12-01] MEDS ORDERED: Sodium Chloride 0.9% 500 ML IV ONE (16:23)
[2023-12-01] MEDS: Dextrose 5%-0.45% NaCl 1,000 ML IV SCH (17:53)
[2023-12-01 19:39] LABS: ANION GAP 15.8 (5-15); BUN/CREATININE RATIO 13.3 (14-18); CALCIUM 8.7 mg/dL (8.5-10.1); CREATININE 0.9 mg/dL (0.55-1.02); EST CRCL DRUG DOSING (CG) 103.33 mL/min; POTASSIUM,K 3.8 mEq/L (3.5-5.1)
[2023-12-01] MEDS ORDERED: 50% Dextrose in Water 50 ML Syringe IVPUSH PRN (20:17)
[2023-12-01] MEDS ORDERED: Insulin Lispro 100 Unit/ML 3 ML KwikPen SUBCUT ONE (20:17)
[2023-12-01] MEDS: Insulin Regular in 0.9 % NACL 100 ML IV SCH (21:12)
[2023-12-01 22:26] LABS: ANION GAP 16.7 (5-15); CALCIUM 8.5 mg/dL (8.5-10.1); POTASSIUM,K 3.7 mEq/L (3.5-5.1)
[2023-12-02] MEDS: Sodium Chloride 0.9% 1,000 ML IV SCH ×2 (00:17→11:02)
[2023-12-02] MEDS: Dextrose 5%-0.45% NaCl 1,000 ML IV SCH (02:19)
[2023-12-02 04:55] LABS: ANION GAP 15.8 (5-15); CALCIUM 8.8 mg/dL (8.5-10.1); CREATININE 1.1 mg/dL (0.55-1.02); EST CRCL DRUG DOSING (CG) 84.54 mL/min; POTASSIUM,K 3.8 mEq/L (3.5-5.1)
[2023-12-02] MEDS ORDERED: Insulin Lispro 100 Unit/ML 3 ML KwikPen SUBCUT ONE ×2 (07:14→13:11)
[2023-12-02] MEDS: Enoxaparin 40 MG/0.4 ML Syringe SUBCUT SCH (08:11)
[2023-12-02 09:49] LABS: ANION GAP 17.4 (5-15); CALCIUM 8.5 mg/dL (8.5-10.1); POTASSIUM,K 3.4 mEq/L (3.5-5.1)
[2023-12-02] MEDS ORDERED: Insulin Glargine,Human Rec. Analog 100 Units/ML 3 ML Pen SUBCUT SCH (10:30)
[2023-12-02] MEDS: Potassium Chloride 10 MEQ in Premix Bag 1 BAG IV SCH ×2 (11:23→12:23)
[2023-12-02 12:53] LABS: ANION GAP 16.8 (5-15); BUN/CREATININE RATIO 11.1 (14-18); CALCIUM 8.5 mg/dL (8.5-10.1); CREATININE 0.9 mg/dL (0.55-1.02); EST CRCL DRUG DOSING (CG) 103.33 mL/min; POTASSIUM,K 3.8 mEq/L (3.5-5.1)
[2023-12-02 15:30] LABS: ANION GAP 15.7 (5-15); CALCIUM 8.1 mg/dL (8.5-10.1); POTASSIUM,K 3.7 mEq/L (3.5-5.1)
[2023-12-02] MEDS ORDERED: Insulin Lispro 100 Unit/ML 3 ML KwikPen SUBCUT SCH ×3 (17:00→17:30)
== END 2023-12-02 15:24 | disposition home or self-care (01) | DRG 560 ==
LOC: JD.OBCHECK 15:25 → JD.OB 15:27 → JD.OBCHECK 15:31 → JD.OB 15:32 → OBSVTOIN 16:10 → JD.ICU 17:48
PROVIDERS: ADMIT Obstetrics & Gynecology; ATTEND Obstetrics & Gynecology
PROC: 10E0XZZ Delivery of Products of Conception, External Approach (ICD-10-PCS; principal; 2023-11-30)
PROC: 10907ZC Drainage of Amniotic Fluid, Therapeutic from Products of Conception, Via Natural or Artificial Opening (ICD-10-PCS; 2023-11-30)
DX: O60.14X0 Preterm labor third trimester with preterm delivery third trimester, not applicable or unspecified (principal); Z37.0 Single live birth; O16.4 Unspecified maternal hypertension, complicating childbirth; O24.420 Gestational diabetes mellitus in childbirth, diet controlled; O99.284 Endocrine, nutritional and metabolic diseases complicating childbirth; E87.1 Hypo-osmolality and hyponatremia; O75.89 Other specified complications of labor and delivery; N17.9 Acute kidney failure, unspecified; O45.93 Premature separation of placenta, unspecified, third trimester; E87.6 Hypokalemia; Z3A.32 32 weeks gestation of pregnancy; Z28.39 Other underimmunization status
CPT/HCPCS: 36415; 59025; 59409; 80048; 80053; 81003; 82010; 82947; 83036; 83605; 84132; 85025; 85027; 85384; 85610; 85730; 86592; 86850; 86900; 86901; 87653; 90707; J0290; J1650; J1815; J1815-GY; J3480; J3490; J7030; J7042; J7120; J7999

== ENCOUNTER 2025-05-09 06:28 | Emergency (ER) | payer BC, MEDICAID | END 2025-05-09 08:10 | disposition home or self-care (01) | LOC: JD.ED 06:28 | DX: S93.401A Sprain of unspecified ligament of right ankle, initial encounter (principal); S83.92XA Sprain of unspecified site of left knee, initial encounter; I10 Essential (primary) hypertension; Z79.4 Long term (current) use of insulin; Z79.84 Long term (current) use of oral hypoglycemic drugs; Z79.899 Other long term (current) drug therapy; Z86.16 Personal history of COVID-19; W10.9XXA Fall (on) (from) unspecified stairs and steps, initial encounter; Y93.89 Activity, other specified | CPT/HCPCS: 73564-26-LT; 73564-LT; 73610-26-RT; 73610-RT; 99283 ==